=== PATIENT | female | born 1945 | race Caucasian/White ===

== ENCOUNTER 2017-02-09 22:42 | Emergency (ER) | payer MEDICARE ==
[2017-02-09 23:21] LABS: Bilirubin Negative (Negative); Blood, Urine Moderate (Negative); Clarity Slightly Cloudy (Clear); Glucose, Urine (Dipstick) Negative (Negative); Leukocyte Large (Negative); Nitrite Positive (Negative); Protein, Urine (Dipstick) 100 mg/dL (Neg-Trace); Urobilinogen 0.2 mg/dL (0.2-1.0)
[2017-02-09] MEDS ORDERED: Acetaminophen 325 MG TAB ONE (23:21)
[2017-02-09] MEDS ORDERED: HYDROcodone/Acetaminophen 10/325 mg Tablet ONE (23:21)
[2017-02-09 23:23] LABS: RBC/HPF 21-50 HPF (0-3)
[2017-02-09 23:24] LABS: Bacteria/HPF 4+ HPF (None Seen); Hyaline Casts/LPF 4-6 HYALINE CAST LPF (0-3 Hyaline); Renal Epithelial 0-3 HPF (0-3); Transitional Epithelial 0-3 HPF (0-3)
[2017-02-09 23:54] LABS: #Basophils 0.1 thou/uL (0.0-0.2); #Eosinphils 0.2 thou/uL (0.0-0.7); #Lymphocytes 2.3 thou/uL (1.20-3.40); #Monocytes 0.8 thou/uL (0.11-0.59); #Neutrophils 6.2 thou/uL (1.40-6.50); %Basophils 0.9 % (0.0-1.0); %Eosinophils 1.6 % (0.0-10.0); %Lymphocytes 24.2 % (21.0-51.0); %Monocytes 8.7 % (0.0-10.0); %Neutrophils 64.5 % (42.0-75.0); Hemoglobin 14.3 g/dL (12.0-16.0); Mean Corpuscular HGB CONC 32.8 g/dL (32.0-36.0); Mean Corpuscular Hemoglobin 30.2 pg (27.0-31.0); Mean Corpuscular Volume 92.1 fl (81.0-99.0); Mean Platelet Volume 9.2 fL (7.4-10.4); Platelet Count 218 thou/uL (130-400); RBC Distribution Width 12.2 % (11.5-14.5); Red Blood Cell (RBC) Count 4.75 mill/uL (4.20-5.40); White Blood Cell (WBC) Count 9.5 thou/uL (4.8-10.8)
[2017-02-10 00:04] LABS: Anion Gap 16 mmol/L (10-20); BUN (Urea Nitrogen) 15 mg/dL (9.8-20.1); Calc. Creatinine Clearance 0 mL/min (70-130); Carbon Dioxide 25 mmol/L (23-31); Chloride 101 mmol/L (98-107); Estimated GFR-MDRD 46; Glucose 131 mg/dL (80-115); Potassium 4.2 mmol/L (3.5-5.1); Sodium 138 mmol/L (136-145)
--- NOTE | 2017-02-10 00:09 | CT ---
CT ABDOMEN NONCONTRAST CT PELVIS NONCONTRAST: (urolithiasis protocol) DATE: 02-09-17 TIME: 11:25 p.m. HISTORY: 71-year-old female with lower abdominal pain and left flank pain. COMPARISON: None. TECHNIQUE: IV injection of iodinated contrast media: none Oral contrast media: none FINDINGS: Other than for urolithiasis, the lack of IV and oral contrast limits the evaluation. Diffusely low hepatic attenuation represents fatty liver. Cholecystectomy clips in the gallbladder fo ssa. Right kidney is smaller than the left. No hydronephrosis. No renal or bladder calculus. There is diffuse left periureteral fat stranding indicating edema, but no dilation of the left proximal and m id ureter. There is mild dilation of the distal left ureter. Because of atherosclerotic calcification s in close proximity to the left mid-distal ureter, it is difficult to rule out tiny left ureteral ca lculus on the order of 2mm, but there is probably no calculus in the ureter. The cecum and terminal i leum are medialized, in the anterior portion of the right mid abdomen. The appendix is not identified . No signs of acute colonic diverticulitis. No small bowel dilation. No ascites or pneumoperitoneum. Within the limitations of a noncontrast scan, no major abnormality identified involving the abdominal aorta, adrenals, pancreas, or spleen. Lung bases are clear. No pleural effusion. IMPRESSION: 1. Left periureteral edema, along the length of the entire left ureter, especially distally. The etio logy of this is uncertain. One possibility is a recently passed left ureteral calculus. 2. No hydronephrosis, and currently no renal calculi identified. 3. Hepatic steatosis. 4. Status post cholecystectomy. 5. If symptoms do not improve, urology consultation should be considered. BRANDY Hollins POS: DANISH
== END 2017-02-09 23:48 | disposition home or self-care (01) ==
LOC: MADERS 22:42
DX: N39.0 Urinary tract infection, site not specified (principal); I25.2 Old myocardial infarction; E11.9 Type 2 diabetes mellitus without complications; E03.9 Hypothyroidism, unspecified; K21.9 Gastro-esophageal reflux disease without esophagitis; J44.9 Chronic obstructive pulmonary disease, unspecified; E78.5 Hyperlipidemia, unspecified; I10 Essential (primary) hypertension; F41.9 Anxiety disorder, unspecified; F32.9 Major depressive disorder, single episode, unspecified; Z87.891 Personal history of nicotine dependence
CPT/HCPCS: 36415; 74176; 80048; 81003; 81015; 85025; 87077; 87086; 87186